=== PATIENT | male | born 1970 | race Caucasian/White ===

== ENCOUNTER 2020-12-17 13:03 | Emergency (ER) | payer OTHER ==
[2020-12-17 13:18] VITALS: BP 117/69; PULSE 65; RESP 18; TEMP 98.1
--- NOTE | 2020-12-17 13:58 | ED ---
General Adult HPI - General Chief complaint: Recheck/Abnormal Lab/Rx Stated complaint: mass on lung Time Seen by Provider: 12/17/20 13:23 Source: patient, RN notes reviewed, old records reviewed Mode of arrival: ambulatory Limitations: no limitations - History of Present Illness Initial comments: 50-year-old male who had been seen at outside hospital on 625 and was diagnosed with lung mass presents to the emergency department for evaluation. He had an appointment with the fire alarm operator at 1 PM today but was diverted to the emergency department for more urgent evaluation. The patient had not planned on this and does have animals at home the need to be cared for. He denies any acute symptoms. He feels better than he did at the time of his ER evaluation on December 13. He states he is not able to stay in the hospital for further evaluation or workup. No fever. No dyspnea. - Related Data Allergies Allergy/AdvReac Type Severity Reaction Status Date / Time No Known Allergies Allergy Verified 12/17/20 13:17 Review of Systems ROS Statement: Those systems with pertinent positive or pertinent negative responses have been documented in the HPI. ROS Other: All systems not noted in ROS Statement are negative. Past Medical History Additional Past Medical History / Comment(s): chronic back issues. History of Any Multi-Drug Resistant Organisms: None Reported Past Surgical History: Orthopedic Surgery Smoking Status: Current every day smoker Past Alcohol Use History: None Reported Past Drug Use History: None Reported General Exam Limitations: no limitations General appearance: alert, in no apparent distress Head exam: Present: atraumatic, normocephalic Eye exam: Present: normal appearance, PERRL ENT exam: Present: normal exam Neck exam: Present: normal inspection. Absent: tenderness, meningismus Respiratory exam: Absent: respiratory distress Cardiovascular Exam: Present: regular rate, normal rhythm GI/Abdominal exam: Present: soft. Absent: distended, tenderness Extremities exam: Present: normal inspection, normal capillary refill. Absent: pedal edema Neurological exam: Present: alert, oriented X3, CN II-XII intact. Absent: motor sensory deficit Psychiatric exam: Present: normal affect, normal mood Skin exam: Present: warm, dry, intact. Absent: cyanosis, diaphoretic Course Vital Signs 12/17/20 13:15 Temperature 98.1 F Pulse Rate 65 Respiratory 18 Rate Blood Pressure 117/69 O2 Sat by Pulse 99 Oximetry Medical Decision Making - Medical Decision Making 42-year-old male with new diagnosis of cavitary lung mass, differential diagnosis on CT imaging to include tuberculosis, fungal infection, or cavitary neoplasm. There is associated lymphadenopathy. This is a relatively large mass measuring 7.6 cm. I did discuss initially the case with the office staff from Dr. Hopkins hours office with indicated the Dr. Hopkins wanted the patient to get a more urgent evaluation inpatient including bronchoscopy. The patient does not want to stay in the hospital and is unable to secondary to his responsibilities at home. I discussed case with Dr. Dwyer who is covering for pulmonology as an inpatient and states that the soon as he would be able to do this is . Given the stable hemodynamics and well-appearing nature of this patient we did decide to have the patient return on for bronchoscopy. Dr. Dwyer's staff will contact the patient to make arrangements. Patient is agreeable and thankful for this disposition. Disposition Clinical Impression: Mass of lung Disposition: HOME SELF-CARE Condition: Fair Additional Instructions: Please plan on lung procedure, bronchoscopy on . Please do not eat or drink after Wednesday night. The office staff from Dr. Dwyer's office will contact you. Please return with any worsening or changing symptoms. Is patient prescribed a controlled substance at d/c from ED?: No Referrals: Kavon Tsai MD [Primary Care Provider] - 1-2 days Jose David Dwyer DO [Doctor of Osteopathic Medicine] - 1-2 days Time of Disposition: 13:55
== END 2020-12-17 14:33 | disposition home or self-care (01) ==
LOC: EC 13:03
DX: R91.8 Other nonspecific abnormal finding of lung field (principal); F17.200 Nicotine dependence, unspecified, uncomplicated
CPT/HCPCS: 99283

== ENCOUNTER 2020-12-19 10:43 | Day surgery (SDC) | payer OTHER ==
[2020-12-18 09:51] VITALS: BMI 28.7
[~2020-12-19 10:43] MED LIST: ALBUTEROL NEB (CONC) 2.5 MG/0.5 ML INHALATION ONE; ATROPINE SULFATE 0.4 MG/ML 1 ML VIAL IM ONE; LACTATED RINGERS 1,000 ML IV SCH; LIDOCAINE 1% (10MG/ML) FOR IV START INTRADERMA PRN; LIDOCAINE 2% (PF) 20 MG/ML 5 ML VIAL INHALATION ONE; LIDOCAINE VISCOUS 300 MG/15 ML CUP MUCOUS MEM ONE; SODIUM CHLORIDE 0.9% 1,000 ML IV SCH
[2020-12-19] MEDS ORDERED: GLYCOPYRROLATE 0.2 MG/ML 2 ML VIAL ONE (13:55)
[2020-12-19] MEDS ORDERED: ROCURONIUM 10 MG/ML (5 ML VIAL) IV ONE (13:55)
[2020-12-19] MEDS ORDERED: NEOSTIGMINE 1 MG/ML 10 ML VIAL ONE (13:55)
[2020-12-19] MEDS ORDERED: SUCCINYLCHOLINE CHLORIDE 100 MG/5 ML SYR IV ONE (13:55)
[2020-12-19] MEDS ORDERED: ONDANSETRON 4 MG/2 ML VIAL ONE (13:55)
[2020-12-19] MEDS ORDERED: PROPOFOL 10 MG/ML 20 ML VIAL IV ONE (13:55)
[2020-12-19] MEDS ORDERED: LIDOCAINE 1% INJ 10MG/ML (20 ML MDV) ONE (13:55)
[2020-12-19 15:07] VITALS: RESP 18; TEMP 97
[2020-12-19 16:06] VITALS: BP 97/58; PULSE 50
--- NOTE | 2020-12-19 16:15 | XR ---
EXAMINATION TYPE: XR chest 1V portable DATE OF EXAM: 12/19/2020 Comparison: CT chest same day Clinical History: 50-year-old male Post TOÑITO biopsies Findings: Known cavitary left upper lobe mass. No appreciable pneumothorax. Groundglass changes in the bilatera l lungs. Heart normal size. No pleural effusion. Impression: Known large left upper lung cavitary lesion. Background groundglass changes. Consider interstitial pn eumonitis or atypical pneumonias. No evident pneumothorax.
--- NOTE | 2020-12-19 19:19 | CT ---
EXAMINATION TYPE: CT Chest robert Marrero Protocol DATE OF EXAM: 12/19/2020 COMPARISON: None HISTORY: 50-year-old male pre navigational bronch TECHNIQUE: Contiguous axial scanning of the chest without contrast during both inspiratory and expira tory phases. Coronal and sagittal reconstructions performed. Imaging performed for medication of purp oses. CT DLP: 661 mGycm Automated exposure control for dose reduction was used. FINDINGS: Cavitary masslike opacity measuring 7.8 cm in the left upper lobe. Surrounding groundglass opacity. Additional areas of groundglass and reticulation are present throughout the bilateral lungs. Background of mild to moderate centrilobular emphysema. Scattered nodules are present measuring up to 4 mm. These should be reassessed at follow-up. Heart normal size without pericardial effusion. Confluent left suprahilar lymphadenopathy suggested along with AP window lymph node measuring 1.2 cm and lower right paratracheal lymph node measuring 1.1 cm. Possible right infrahilar lymphadenopathy as well, axial image 39. Visualized upper abdomen shows no gross abnormality. Bones: No osseous destructive process. Superior endplate deformity T12 is age-indeterminate. Focal ky phosis at this level. IMPRESSION: 1. A 7.8 CM LEFT UPPER LOBE CAVITARY MASS. SURROUNDING GROUNDGLASS. ADDITIONAL GENERALIZED GROUNDGLAS S THROUGHOUT BOTH LUNGS ON A BACKGROUND OF COPD. CAVITARY NEOPLASM AND ATYPICAL FUNGAL AND MYCOBACTER IAL INFECTIONS ARE IN THE DIFFERENTIAL. 2. SCATTERED PULMONARY NODULES MEASURING UP TO 4 MM. THESE SHOULD BE REASSESSED AT A THREE-MONTH FOLL OW-UP CT. 3. MEDIASTINAL AND HILAR LYMPHADENOPATHY. THERE APPEARS TO BE A CONFLUENT LEFT SUPRAHILAR KARL MASS NOT WELL DELINEATED DUE TO LACK OF IV CONTRAST. METASTATIC DISEASE AND REACTIVE LYMPHADENOPATHY ARE B OTH IN THE DIFFERENTIAL AT THIS TIME.
--- NOTE | 2020-12-19 20:05 | PCN ---
PROCEDURE NOTE PROCEDURE PERFORMED: Navigational bronchoscopy. OPERATORS: Dr. Dwyer and Dr. Hernández. PREOP DIAGNOSIS: Left lung mass. POSTOP DIAGNOSIS: Left lung mass. Rule out cancer versus infection. Bekah Peña CRNA provided general anesthesia along with Dr. Wall. There was informed consent and universal timeout. The patient's procedure took place in room #1. Johanne Sanchez from [employer] was present for the procedure. After the patient was fully anesthetized and on the mechanical ventilator, the bronchoscope was inserted through the bronchoscope adapter connected to the endotracheal tube. The airways were topicalized. We did a thorough evaluation of the right upper lobe and its three segments, right middle lobe and its two segments, right lower lobe and its five segments, left upper lobe proper and its two segments, lingula and its two segments and left lower lobe and its four segments. Other than thick secretions noted throughout, there was no distinct lung mass or airway abnormality. Next, under guidance from the electromagnetic navigational bronchoscopy, we were able to evaluate the apical posterior and anterior segments of the left upper lobe. Initially, we did multiple transbronchial biopsies. Next, we did transbronchial needle aspirations of the lesion in the left upper lobe. Next, we did multiple brushes including the three headed brush as well as a straight brush. Again, all in the left upper lobe. Finally, we did a BAL in the left upper lobe. The patient tolerated the procedure well. There was minimal bleeding. A chest x-ray will be done after the procedure. I did have a chance to speak with the patient's girlfriend. I explained the process to her and let her know that we probably would not have any samples back before mid next week. The patient will follow up with me in the office. MMODL / IJN: [id number] / MTDGriffin
== END 2020-12-19 16:39 | disposition home or self-care (01) ==
LOC: ORWHC2ENDO 10:43
PROVIDERS: ATTEND Internal Medicine Critical Care Medicine
DX: C34.12 Malignant neoplasm of upper lobe, left bronchus or lung (principal); J44.9 Chronic obstructive pulmonary disease, unspecified; E78.5 Hyperlipidemia, unspecified; G89.29 Other chronic pain; Z79.1 Long term (current) use of non-steroidal anti-inflammatories (NSAID); Z79.891 Long term (current) use of opiate analgesic; Z79.899 Other long term (current) drug therapy; Z96.89 Presence of other specified functional implants; G43.909 Migraine, unspecified, not intractable, without status migrainosus; Z97.2 Presence of dental prosthetic device (complete) (partial)
CPT/HCPCS: 31628; 31624; 31627; 31623; 87798 ×3; 87496; 87498; 87529; 88104; 88108; 88305; 88173; 88342; 87252; 71250; 87502; 87634; 88341; 87070; 87205; 87116; 87102; 87206; 71045; J2710; J2405; J2001; J0330; J2704; 31625; 31629

== ENCOUNTER → 2021-01-13 | Outpatient (CLI) | payer OTHER ==
--- NOTE | 2021-01-13 12:16 | CT ---
EXAMINATION TYPE: CT brain wo/w con DATE OF EXAM: 01/13/2021 COMPARISON: Length HISTORY: Malignant neoplasm of unspecified part of lung CT DLP: 2357mGycm CONTRAST: CT scan of the head is performed without and with IV Contrast, patient injected with 100 mL of Isovue 300. Unenhanced followed by contrast enhanced CT of the brain is submitted for evaluation. The ventricles are midline. There is no evidence for intracranial hemorrhage or extra-axial collection. No mass e ffects are identified. Visualized bony calvarium is intact. Contrast is administered and no enhanci ng lesions are detected. No pathologic enhancement is identified. If symptoms persist consider MRI. IMPRESSION: No enhancing lesion is identified at this time.
== END | disposition home or self-care (01) ==
LOC: RADCTMAIN 11:32
PROVIDERS: ATTEND Internal Medicine Hematology & Oncology
DX: C34.90 Malignant neoplasm of unspecified part of unspecified bronchus or lung (principal)
CPT/HCPCS: 70470; Q9967

== ENCOUNTER → 2021-01-17 | Outpatient (CLI) | payer OTHER ==
--- NOTE | 2021-01-20 06:40 | PE ---
EXAMINATION TYPE: PET CT fusion skull to thigh DATE OF EXAM: 01/17/2021 COMPARISON: Outside CTA chest December 13, 2020 HISTORY: Lung cancer diagnosed earlier this month. TECHNIQUE: Following the intravenous administration of 9.85 mCi of F-18 FDG, whole body images are p erformed from the skull base to the midthigh. Images are reviewed on the computer in the coronal, ax ial, and sagittal planes. Reconstructed rotating images are created on independent workstation and r eviewed on the computer. A localization and attenuation correction CT is performed in conjunction w ith the PET scan. Blood glucose level equals 108 SCAN: Initial Scan FINDINGS: SKULL BASE AND NECK: No abnormal hypermetabolic lesions. CHEST, MEDIASTINUM, AND HILAR REGION: [id number] underlying emphysematous change redemonstrated with scattered areas of groundglass opacity and reticulation bilaterally. Redemonstration of left apical mass with abnormal hypermetabolic uptake measuring approximately 6.8 x 6.3 cm axial image 68, max SUV is 9.73. The lesion abuts the pleural surface. Abnormal left hilar lymph node measuring roughly 1.9 x 1.3 cm axial image 84, max SUV is 4.62. Abnormal hypermetabolic enlarged AP window lymph node measuring 2.8 x 2.1 cm axial image 88, max SUV is 7.13. Scattered suspicious but subcentimeter nodules are ametabolic throughout the bilateral lungs are rede monstrated. ABDOMEN AND PELVIS: Nonspecific increased gastric uptake, max SUV is 5.15. No suspicious adrenal masses. Normal excretion. Overlying urine leakage. No additional areas of abnormal hypermetabolic uptake. OSSEOUS STRUCTURES: No areas of abnormal hypermetabolic uptake. OTHER CT: Mild calcified plaque bilateral carotid bulb level. Cardiomegaly. Moderate three-vessel cor onary artery calcification. Postsurgical change lower lumbar spine. Left posterior pelvic stimulator device. IMPRESSION: Large left apical neoplasm. Abnormal left hilar and AP window adenopathy. Several suspici ous subcentimeter nodules despite lack of metabolic uptake. Nonspecific gastric uptake. Correlate cli nically.
== END | disposition home or self-care (01) ==
LOC: RADPETMAIN 16:19
PROVIDERS: ATTEND Internal Medicine Hematology & Oncology
DX: C34.12 Malignant neoplasm of upper lobe, left bronchus or lung (principal)
CPT/HCPCS: 78815; A9552

== ENCOUNTER → 2021-02-06 | Day surgery (SDC) | payer OTHER ==
[2021-02-03 13:34] VITALS: BMI 28.6
[~2021-02-06] MED LIST changes: -ALBUTEROL NEB (CONC) 2.5 MG/0.5 ML INHALATION ONE; -ATROPINE SULFATE 0.4 MG/ML 1 ML VIAL IM ONE; +DEXAMETHASONE SOD PHOSPHATE 4 MG/ML 1 ML VIAL IV ONE; +HYDROmorphone 0.5 MG/0.5 ML SYRINGE IVP PRN; +LIDOCAINE 1% (10MG/ML) FOR IV START INTRADERMA ONE; -LIDOCAINE 1% (10MG/ML) FOR IV START INTRADERMA PRN; -LIDOCAINE 2% (PF) 20 MG/ML 5 ML VIAL INHALATION ONE; -LIDOCAINE VISCOUS 300 MG/15 ML CUP MUCOUS MEM ONE; +MIDAZOLAM 2 MG/2 ML VIAL IV PRN; +ONDANSETRON 4 MG/2 ML VIAL IVP ONE; +Pre Op ABX Message 1 EACH MISC MISCELLANE ONE; +SCOPOLAMINE 1.5MG/72HR PATCH TRANSDERM ONE; -SODIUM CHLORIDE 0.9% 1,000 ML IV SCH
[2021-02-06 11:45] VITALS: BP 120/80; PULSE 77; RESP 16; TEMP 97.4
--- NOTE | 2021-02-06 12:26 | P.PN ---
Progress Note - Text Progress Note Date: 02/06/21 Patient presents to the hospital today for elective Port-A-Cath placement. Patient currently states he was very hungry on the way to the hospital and decided to eat a iesha cracker. Anesthesia advised rescheduling or postponing greater than 8 hours. Discussed with patient. We'll reschedule for Wednesday.
== END ==
LOC: OR 11:02
PROVIDERS: ATTEND Surgery
DX: C34.92 Malignant neoplasm of unspecified part of left bronchus or lung (principal); Z53.09 Procedure and treatment not carried out because of other contraindication

== ENCOUNTER 2021-02-10 05:48 | Day surgery (SDC) | payer OTHER ==
[2021-02-07 09:19] VITALS: BMI 27.6
[~2021-02-10 05:48] MED LIST changes: -DEXAMETHASONE SOD PHOSPHATE 4 MG/ML 1 ML VIAL IV ONE; -HYDROmorphone 0.5 MG/0.5 ML SYRINGE IVP PRN; -LACTATED RINGERS 1,000 ML IV SCH; -LIDOCAINE 1% (10MG/ML) FOR IV START INTRADERMA ONE; -MIDAZOLAM 2 MG/2 ML VIAL IV PRN; -ONDANSETRON 4 MG/2 ML VIAL IVP ONE; -SCOPOLAMINE 1.5MG/72HR PATCH TRANSDERM ONE
[2021-02-10] MEDS ORDERED: HYDROmorphone 0.5 MG/0.5 ML SYRINGE IVP PRN (05:51)
[2021-02-10] MEDS ORDERED: LACTATED RINGERS 1,000 ML IV SCH (05:51)
[2021-02-10] MEDS ORDERED: ONDANSETRON 4 MG/2 ML VIAL IVP ONE (05:51)
[2021-02-10] MEDS ORDERED: LIDOCAINE 1% (10MG/ML) FOR IV START INTRADERMA PRN (05:51)
[2021-02-10] MEDS ORDERED: LIDOCAINE 1% (10MG/ML) FOR IV START INTRADERMA ONE (07:00)
[2021-02-10] MEDS ORDERED: HEPARIN SODIUM,PORCINE 5,000 UNIT/ML 1 ML VIAL SQ ONE (07:30)
[2021-02-10] MEDS ORDERED: ACETAMINOPHEN TAB 500 MG TAB PO ONE (07:30)
[2021-02-10] MEDS ORDERED: HEPARIN SODIUM,PORCINE/PF 5,000 UNIT/0.5 ML SYRINGE SQ ONE (07:33)
--- NOTE | 2021-02-10 07:40 | P.GSHP ---
History of Present Illness H&P Date: 02/10/21 Chief Complaint: Lung cancer 50-year-old male here today for Port-A-Cath placement. Diagnosed with lung cancer left side recently. He has already had 2-3 courses of chemotherapy. Patient has poor IV access. Was initially scheduled last week however have to be postponed. Past Medical History Past Medical History: Hyperlipidemia, Neurologic Disorder Additional Past Medical History / Comment(s): CHRONIC BACK PAIN. LT LUNG MASS. MIGRAINES History of Any Multi-Drug Resistant Organisms: None Reported Past Surgical History: Appendectomy, Back Surgery, Orthopedic Surgery Additional Past Surgical History / Comment(s): LEFT CARPAL TUNNEL RELEASE Past Anesthesia/Blood Transfusion Reactions: No Reported Reaction Smoking Status: Current every day smoker - Past Family History Father Family Medical History: Cancer Medications and Allergies Home Medications Medication Instructions Recorded Confirmed Type HYDROcodone/APAP 10-325MG [[place] 1 tab PO BID 12/18/20 02/10/21 History 10-325] Morphine Pump 1 dose INTRATHECA DIRECTED 12/18/20 02/10/21 History Naproxen [Naprosyn] 500 mg PO Q12HR 12/18/20 02/10/21 History Topiramate [Topamax] 50 mg PO BID 12/18/20 02/10/21 History Benzonatate [Tessalon Perles] 100 mg PO TID 02/06/21 02/10/21 History LORazepam [Ativan] 0.5 mg PO BID PRN 02/06/21 02/10/21 History Allergies Allergy/AdvReac Type Severity Reaction Status Date / Time No Known Allergies Allergy Verified 02/10/21 06:49 Surgical - Exam Vital Signs Temp Pulse Resp BP Pulse Ox 97.5 F L 66 16 124/76 100 02/10/21 06:46 02/10/21 06:46 02/10/21 06:46 02/10/21 06:46 02/10/21 06:46 Physical exam: General: Well-developed, well-nourished HEENT: Normocephalic, sclerae nonicteric Abdomen: Nontender, nondistended Extremities: No edema Neuro: Alert and oriented Assessment and Plan (1) Lung cancer Narrative/Plan: Will proceed with Port-A-Cath placement. Risks of bleeding, infection, DVT, pneumothorax, catheter malfunction, anesthesia related complications were discussed. The patient understands and wishes to proceed. Current Visit: Yes Status: Acute Code(s): C34.90 - MALIGNANT NEOPLASM OF UNSP PART OF UNSP BRONCHUS OR LUNG SNOMED Code(s): 719375178
[2021-02-10] MEDS ORDERED: ePHEDrine SULFATE/0.9% NACL/PF 50 MG/5 ML SYRINGE IV ONE (07:42)
[2021-02-10] MEDS ORDERED: PROPOFOL 10 MG/ML 20 ML VIAL IV ONE (07:42)
[2021-02-10] MEDS ORDERED: MIDAZOLAM 2 MG/2 ML VIAL ONE (07:42)
[2021-02-10] MEDS ORDERED: fentaNYL (PF) 50 MCG/ML 2 ML AMP ONE (07:42)
[2021-02-10] MEDS ORDERED: LIDOCAINE 1% INJ 10MG/ML (20 ML MDV) ONE (07:42)
[2021-02-10] MEDS ORDERED: SODIUM CHLORIDE 0.9% 100 ML with ceFAZolin 2,000 MG IV ONE ×2 (08:01)
[2021-02-10] MEDS ORDERED: LIDOCAINE 1% INJ 10MG/ML (20 ML MDV) SQ ONE ×2 (08:07)
[2021-02-10] MEDS ORDERED: NALOXONE 0.4 MG/ML 1 ML VIAL IV PRN (08:39)
[2021-02-10] MEDS ORDERED: HYDROcodone/APAP 5-325MG 1 EACH TAB PO PRN (08:39)
--- NOTE | 2021-02-10 08:41 | P.OP ---
Date of Procedure: 02/10/21 Procedure(s) Performed: PREOPERATIVE DIAGNOSIS: Lung cancer POSTOPERATIVE DIAGNOSIS: Same PROCEDURE: Port-A-Cath placement with fluoroscopic and ultrasound guidance SURGEON: Terrie EBL: Minimal ANESTHESIA: Sedation COMPLICATIONS: None OPERATIVE PROCEDURE: Patient was brought and placed on the operative table in the supine position. The patient was sedated per anesthesia that time. The chest and neck were prepped and draped in usual sterile fashion. The ultrasound probe was used to identify the location of the right internal jugular vein. The skin was localized with lidocaine. The Seldinger needle was advanced into the IJ under ultrasound guidance. The wire was advanced through the needle under fluoroscopic guidance into the superior vena cava. A port pocket was created in the right infraclavicular location. The catheter was tunneled from the wire entrance site to the port pocket. The port was then connected to the catheter. The dilator introducer was threaded over the guidewire. The guidewire and dilator were then removed. The catheter was advanced through the introducer and introducer was then removed. The tip was seen to be in the right atrial junction via fluoroscopy. A picture of the radiograph showing the tip at the radial digital junction was taken. Port was flushed with both saline and a Hep- Lock solution. There was good flow both in and out of the port. The port was sutured in underlying tissues using 3-0 silk sutures. The subcutaneous tissues were reapproximated using 3-0 Vicryl sutures and the skin at both locations using 4-0 Monocryl sutures. Skin glue and sterile dressings then applied. DISPOSITION: Stable to recovery room
[2021-02-10 08:43] VITALS: TEMP 98
--- NOTE | 2021-02-10 09:01 | FL ---
EXAMINATION TYPE: FL guided central line placemt HISTORY: Fluoroscopy time Impression: 1. Fluoroscopy support provided to the referring physician. 8 seconds of fluoroscopy provided.
--- NOTE | 2021-02-10 09:16 | XR ---
EXAMINATION TYPE: XR chest 1V portable DATE OF EXAM: 02/10/2021 COMPARISON: 12/19/2020 HISTORY: Shortness of breath TECHNIQUE: Single frontal view of the chest is obtained. FINDINGS: Mediport catheter and cardiomegaly noted. There is underlying COPD with left lower lobe in filtrate and large mass involving the left hilum and upper lobe extending to the pleura. Cavitating l esion in the differential diagnosis. IMPRESSION: 1. Left upper lobe cavitating mass or pneumonia stable. 2. Left lower lobe infiltrate.
[2021-02-10] MEDS ORDERED: LACTATED RINGERS 1,000 ML IV ONE (09:21)
[2021-02-10 09:33] VITALS: RESP 16
[2021-02-10 09:53] VITALS: BP 110/75; PULSE 79
== END 2021-02-10 10:01 | disposition home or self-care (01) ==
LOC: OR 05:48
PROVIDERS: ATTEND Surgery
DX: C34.90 Malignant neoplasm of unspecified part of unspecified bronchus or lung (principal); Z45.2 Encounter for adjustment and management of vascular access device; E78.5 Hyperlipidemia, unspecified; F17.200 Nicotine dependence, unspecified, uncomplicated; Z79.1 Long term (current) use of non-steroidal anti-inflammatories (NSAID); Z90.49 Acquired absence of other specified parts of digestive tract; G43.909 Migraine, unspecified, not intractable, without status migrainosus
CPT/HCPCS: 36561; 77001; 71045; C1788; J2250; J1644; J2405; J0690; J2001; J3010; J1642; J2704

== ENCOUNTER → 2021-05-06 | Outpatient (CLI) | payer OTHER ==
[2021-05-06 11:44] LABS: African American GFR (CKD) >90 (>60 ml/min/1.73 sqM); Blood Urea Nitrogen 7 mg/dL (9-20); Non-African American GFR(CKD) >90 (>60 ml/min/1.73 sqM)
--- NOTE | 2021-05-06 13:10 | CT ---
EXAMINATION TYPE: CT ChestAbdPelvis w con DATE OF EXAM: 05/06/2021 COMPARISON: 01/17/2021 HISTORY: Lung Cancer. Observe for mets CT DLP: 661.00 mGycm Automated exposure control for dose reduction was used. CONTRAST: CT scan of the chest, abdomen and pelvis is performed with Oral Contrast and with IV Contrast, patien t injected with 100 ml mL of Isovue 300. FINDINGS: [id number] underlying emphysematous change redemonstrated with scattered areas of groundglass o pacity and reticulation bilaterally. Redemonstration of left apical mass with abnormal hypermetabolic uptake measuring approximately 4.8 x 4.8 cm and previously measured 6.8 x 6.3 cm . The lesion abuts the pleural surface. Stable 6 mm nodule in the right upper lobe. There is a subpleural 5 mm nodule in the right lower lobe and adjacent to millimeter nodule not seen with certainty on the prior exam. Interlobular septal thi ckening is compatible with chronic interstitial lung disease. Additional 5 mm subpleural nodule left lower lobe retrospectively stable. There are multiple additional subpleural less than 5 mm nodules no dularity seen in the right middle lobe axial image 36 measuring 7 mm retrospectively stable adjacent 2 mm nodule also stable. MEDIASTINUM: There are numerous shotty lymph nodes with no nodule in the mediastinum measuring greate r than 1 cm. However, there is a right hilar soft tissue nodule measuring short axis of 1.4 cm. AP window lymph node previously measured 2.1 cm in short axis and now measures approximately 8 mm. Heart size is mildly prominent but stable. Aorta of normal caliber with atherosclerotic changes. No p leural effusion or pneumothorax. Chronic appearing compression fracture T12 noted correlate clinically. Postsurgical changes involving the vertebral, multilevel hypertrophic and degenerative change. Stimul ator device in the left flank. Bowel gas pattern nonspecific. Liver and spleen are homogeneous. Pancr eas normal. Adrenal glands normal morphology. No hydronephrosis or nephrolithiasis. IMPRESSION: 1. Interval reduction in size of the cavitating mass left upper lobe measuring 4.8 x 4.8 cm and previ ously measuring 6.8 x 6.3 cm. 2. COPD with multiple subcentimeter pulmonary nodules stable in appearance. 3. Interval reduction in size of adenopathy within the mediastinum. 4. Stable right hilar lymphadenopathy measuring short axis of 1.4 cm.
== END | disposition home or self-care (01) ==
LOC: RADCTMAIN 10:36
PROVIDERS: ATTEND Internal Medicine Hematology & Oncology
DX: C34.12 Malignant neoplasm of upper lobe, left bronchus or lung (principal); R59.0 Localized enlarged lymph nodes; R91.8 Other nonspecific abnormal finding of lung field; J44.9 Chronic obstructive pulmonary disease, unspecified
CPT/HCPCS: 82565; 84520; 71260; 74177; 36415; Q9967

== ENCOUNTER → 2021-06-26 | Outpatient (CLI) | payer OTHER ==
[2021-06-26 08:57] LABS: African American GFR (CKD) >90 (>60 ml/min/1.73 sqM); Blood Urea Nitrogen 12 mg/dL (9-20); Non-African American GFR(CKD) >90 (>60 ml/min/1.73 sqM)
--- NOTE | 2021-06-26 09:49 | CT ---
"EXAMINATION TYPE: CT brain wo/w con DATE OF EXAM: 06/26/2021 COMPARISON: CT brain January 13, 2021 HISTORY: LUNG CA, R/O METS CT DLP: 2253 mGycm. Automated Exposure Control for Dose Reduction was Utilized. TECHNIQUE: CT scan of the head is performed with IV Contrast, patient injected with 100 mL of Isovu e 300. FINDINGS: Noncontrast images show no acute intracranial hemorrhage or midline shift. Postcontrast images show multiple rim-enhancing metastatic lesions scattered throughout the brain par enchyma with larger lesions showing surrounding hypodensity or vasogenic edema. Approximately 20-25 s cattered lesions are present. Some Reference lesions include: 1. A 1.1 x 1.0 x 1.3 cm Central pontine lesion on axial image 15 and coronal image 42 with surroundin g vasogenic edema. Some loss of surrounding CSF noted versus prior. 2. A 1.2 x 1.2 x 1.1 cm right cerebellar lesion with surrounding vasogenic edema axial image 20 and c oronal image 52. 3. A 1.5 x 1.3 x 1.4 cm superficial left frontal lesion with adjacent vasogenic edema axial image 37 and coronal image 24. No hydrocephalus. Patchy fluid in the right frontal sinus. Some new mucosal thickening and patchy opa cification of anterior ethmoid sinuses. Old fracture deformity medial wall right orbit redemonstrated axial image 11. 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 A Yellow level critical message alert has been initiated for Susan Suero MD via the [employer] 0 | Critical Results System on 06/26/2021 9:47 AM. This message alert has been sent to Susan Suero MD via the preferences provided by the clinician for the receipt of Radiology Critical Findings. Mess age ID [id number]."
== END | disposition home or self-care (01) ==
LOC: RADCTMAIN 08:25
PROVIDERS: ATTEND Internal Medicine Hematology & Oncology
DX: C34.92 Malignant neoplasm of unspecified part of left bronchus or lung (principal); G93.6 Cerebral edema
CPT/HCPCS: 82565; 84520; 70470; 36415; Q9967

== ENCOUNTER → 2021-08-06 | Outpatient (CLI) | payer OTHER ==
--- NOTE | 2021-08-06 15:09 | CT ---
EXAMINATION TYPE: CT Chest Abd Pelvis w con DATE OF EXAM: 08/06/2021 COMPARISON: CT dated 05/06/2021 HISTORY: lung CA CT DLP: 1502 mGycm Automated exposure control for dose reduction was used. CONTRAST: CT scan of the chest, abdomen and pelvis is performed with Oral Contrast and with IV Contrast, patien t injected with 100 mL of Isovue 300. FINDINGS: Chest: Significant interval progression of the known left apical lung mass measuring 10.1 x 11.2 cm compared to 4.3 x 5.2 cm previously. It is predominantly solid with multiple central necrotic areas and demon strating air within. The lesion now is inseparable from the left lung apex, the left hilum and the ad jacent mediastinal and costal pleura. It is also inseparable from the left pulmonary artery with poss ible early invasion. The left upper lobe pulmonary artery is markedly attenuated, likely invaded by t he mass. Significant interval progression of the previously seen mediastinal lymph nodes mainly in the prevasc ular location. For example, a prevascular lymph node measures 2.8 x 3.6 cm compared to a subcentimete r lymph node previously. An anterior mediastinal metastatic lymph node measures 2.5 x 3.1 cm and inse parable from the sternum. Newly seen mild cardiomediastinal shift to the right side likely due to the mass effect of the lesion. Retrocardiac metastatic lymph node is seen along the right posterolateral aspect of the left atrium measuring 2.1 x 3 cm, progressed compared to the previous when it measured 9 x 16 mm. Diffuse wall thickening of the esophagus, nonspecific. [id number] left-sided pleural effusion. Suboptimal assessment for tiny pulmonary nodules due to expiratory exposure. No gross new lung nodul es identified in the right lung. Questionable millimetric nodules in the left lower lung zone, attent ion follow-up. Ground glass opacity seen at the inferior aspect of the left upper lobe and in the rachael gula, possibly early metastatic. The left innominate vein is markedly attenuated in caliber along the anterior aspect of the mass yet still patent. No aggressive bone lesion. Abdomen and pelvis: Newly seen right upper renal pole lesion measuring 3 x 3.5 cm, inseparable from the right adrenal, li damian metastatic. Similar yet smaller lesion is seen at the upper pole of the left kidney measuring 1. 6 x 1.7 cm. Newly seen left adrenal metastasis measuring 11 m. Newly seen hypodense area at the poste rior aspect of the distal pancreatic body measuring up to 12 mm, suspicious for metastasis. No definite hepatic focal lesion. Unremarkable gallbladder, spleen, remainder of the pancreas, urinar y bladder, prostate and seminal vesicles. Unremarkable nondistended stomach, duodenum and small bowel . Moderate fecal loading of the colon. Extensive arterial atherosclerotic calcifications. Skin thicke carlos and irregularity are seen along the proximal portion of the penis, appreciated previously. No canales spicious lymphadenopathy or sizable ascites. Previous lower lumbar fixation and left gluteal stimulat or device. Stable anterior wedging of T12 vertebral body. No aggressive bone lesion. IMPRESSION: Interval progression of the known left upper lung lobe mass and the mediastinal lymph nodes with newl y seen metastatic lesions at the superior portions of the kidneys, the adrenals and possibly in the p ancreas as detailed above. This is consistent with progressive disease. Other interval changes as reji cribed above.
== END | disposition home or self-care (01) ==
LOC: RADPROMAIN 09:23
PROVIDERS: ATTEND Internal Medicine Hematology & Oncology
DX: C34.12 Malignant neoplasm of upper lobe, left bronchus or lung (principal); C79.02 Secondary malignant neoplasm of left kidney and renal pelvis; C79.01 Secondary malignant neoplasm of right kidney and renal pelvis; C79.71 Secondary malignant neoplasm of right adrenal gland; C79.72 Secondary malignant neoplasm of left adrenal gland
CPT/HCPCS: 71260; 74177; Q9967